=== PATIENT | female | born 1970 | race Caucasian/White ===

== ENCOUNTER → 2016-10-06 | Outpatient (CLI) | payer OTHER ==
[~2016-10-06] MED LIST: CRAN500C PO; MELA1TAB8 PO; MULT-658 PO; None per pt; PUMP300C PO
[2016-10-06 13:21] LABS: HIV 1&2 ANTIBODY SCREEN Nonreactive (Nonreactive); HIV-1 p24 ANTIGEN Nonreactive (Nonreactive)
== END | disposition home or self-care (01) ==
LOC: STAR 11:33
PROVIDERS: ATTEND Obstetrics & Gynecology Gynecology
DX: D21.9 Benign neoplasm of connective and other soft tissue, unspecified (principal); N92.0 Excessive and frequent menstruation with regular cycle; N94.6 Dysmenorrhea, unspecified
CPT/HCPCS: 36415; 84703; 85025; 86703; 86803; 87899; G0435

== ENCOUNTER 2016-10-11 08:34 | Day surgery (SDC) | payer OTHER ==
[~2016-10-11] VITALS: Ht 162.6 cm; Wt 90.9 kg
[2016-10-11] MEDS ORDERED: MIDAZOLAM 1 MG/ML, 2ML ONE (10:01)
[2016-10-11] MEDS ORDERED: FENTANYL PF 250 MCG/5ML ONE (10:01)
[2016-10-11] MEDS ORDERED: SILVER NITRATE STICK TP ONE (10:18)
[2016-10-11] MEDS ORDERED: ESTROGENS CONJUGATED VAG CRM 0.625MG/1G, 30GM ONE (10:19)
[2016-10-11] MEDS ORDERED: FLUORESCEIN SODIUM 500 MG/5 ML ONE (10:19)
[2016-10-11] MEDS ORDERED: BUPIVACAINE/PF-EPI 0.25% 1:200K ONE (10:19)
[2016-10-11] MEDS ORDERED: DEXAMETHASONE 4 MG/ML, 1ML ONE (10:36)
[2016-10-11] MEDS ORDERED: ONDANSETRON 2MG/ML, 2ML ONE (10:36)
[2016-10-11] MEDS ORDERED: SUCCINYLCHOLINE 20 MG/ML, 10ML ONE (10:36)
[2016-10-11] MEDS ORDERED: PROPOFOL 10 MG/ML, 20ML ONE (10:36)
[2016-10-11] MEDS ORDERED: HYDROmorphone 1 MG/ML, 1ML ONE (11:50)
[2016-10-11] MEDS ORDERED: CEFOTETAN PMX 2GM/50ML 50 ML IVPB ONE (12:00)
[2016-10-11] MEDS ORDERED: ONDANSETRON 2MG/ML, 2ML IV PRN (13:30)
[2016-10-11] MEDS ORDERED: INSTRUCTION SEE COMMENTS XX PRN (13:30)
[2016-10-11] MEDS ORDERED: D5%-LACTATED RINGERS 1,000 ML IV SCH (13:30)
[2016-10-11] MEDS ORDERED: morphine SULFATE 10 MG/ML, 1ML IV PRN (13:30)
[2016-10-11] MEDS ORDERED: OXYcodone 5 MG/5 ML ORAL.SOL UDC PO PRN (13:30)
[2016-10-11] MEDS: OXYcodone 5 MG/5 ML ORAL.SOL UDC PO PRN ×3 (14:10→22:20)
[2016-10-11] MEDS ORDERED: FENTANYL PF 100 MCG/2ML ONE (14:11)
[2016-10-11] MEDS ORDERED: OXYcodone 5 MG/5 ML ORAL.SOL UDC ONE ×4 (14:11→22:21)
[2016-10-11] MEDS: FENTANYL PF 100 MCG/2ML IV PRN ×2 (14:25→14:35)
[2016-10-11] MEDS ORDERED: MORPHINE SULFATE 4 MG/ML, 1ML ONE (19:50)
[2016-10-11] MEDS: DOCUSATE 100 MG CAPSULE PO SCH (20:20)
[2016-10-11] MEDS ORDERED: DOCUSATE 100 MG CAPSULE ONE (20:21)
[2016-10-11] MEDS ORDERED: DIPHENHYDRAMINE 25 MG CAPSULE ONE (23:51)
[2016-10-12] MEDS ORDERED: OMEPRAZOLE 20 MG CAPSULE.DR PO ONE
[2016-10-12] MEDS ORDERED: OXYcodone 5 MG/5 ML ORAL.SOL UDC ONE ×4 (02:54→10:48)
[2016-10-12] MEDS ORDERED: ONDANSETRON 2MG/ML, 2ML ONE (06:41)
[2016-10-12] MEDS ORDERED: DOCUSATE 100 MG CAPSULE ONE (08:36)
[2016-10-12] MEDS: DOCUSATE 100 MG CAPSULE PO SCH (08:40)
[2016-10-12] MEDS: OXYcodone 5 MG/5 ML ORAL.SOL UDC PO PRN (11:00)
[2016-10-12] MEDS ORDERED: DIPHENHYDRAMINE 25 MG CAPSULE PO PRN (12:00)
[2016-10-14] MEDS ORDERED: LACTATED RINGERS 1,000 ML IV SCH (11:53)
[2016-10-14] MEDS ORDERED: CEFOTETAN PMX 2GM/50ML 50 ML IV ONE (12:00)
== END 2016-10-12 19:00 | disposition home or self-care (01) ==
LOC: OR 08:34 → 4NOR 10-12 08:11 → EDIP 10-12 18:00 → OR 10-12 19:00
PROVIDERS: ATTEND Obstetrics & Gynecology Gynecology
DX: D25.2 Subserosal leiomyoma of uterus (principal); N80.0 Endometriosis of uterus; N73.6 Female pelvic peritoneal adhesions (postinfective); E66.9 Obesity, unspecified; Z68.34 Body mass index [BMI] 34.0-34.9, adult; F17.210 Nicotine dependence, cigarettes, uncomplicated; E04.9 Nontoxic goiter, unspecified; Z72.89 Other problems related to lifestyle; Z82.49 Family history of ischemic heart disease and other diseases of the circulatory system
CPT/HCPCS: 58554; 88307; J0330; J1100; J1170; J2250; J2270; J2405; J2704; J3010; Q0163; S0074